=== PATIENT | female | born 1980 | race Caucasian/White ===

== ENCOUNTER 2019-02-02 06:05 | Inpatient (IN) | payer OTHER ==
[~2019-02-02] VITALS: Ht 175.3 cm; Wt 136.1 kg
[2019-02-02 06:11] VITALS: BP 121/49
[2019-02-02] MEDS ORDERED: LISINOPRIL40 MG PO (06:17)
[2019-02-02] MEDS ORDERED: LEXAPRO20 MG PO (06:17)
[2019-02-02] MEDS ORDERED: WELLBUTRIN XL150 MG PO (06:17)
[2019-02-02] MEDS ORDERED: SINGULAIR 10 MG10 M1 PO (06:18)
[2019-02-02] MEDS ORDERED: ZYRTEC10 M5 PO (06:18)
[2019-02-02] MEDS ORDERED: EPIPEN0.3 MG/0.1 SUBQ (06:20)
[2019-02-02] MEDS ORDERED: BREO ELLIPTA 11 EACH INH (06:22)
[2019-02-02 06:35] LABS: ABSOLUTE BASOPHILS 0.1 thou/uL (0.0-0.2); ABSOLUTE EOSINOPHILS 0.1 thou/uL (0.0-0.7); ABSOLUTE LYMPHOCYTES 1.9 thou/uL (0.8-5.3); ABSOLUTE MONOCYTES 0.9 thou/uL (0.0-1.2); ABSOLUTE NEUTROPHILS 10.7 thou/uL (1.6-8.1); BASOPHILS 0.6 %; HEMOGLOBIN 12.5 gm/dL (12.0-15.0); LYMPHOCYTES 14.1 %; MCH 30.6 pg (26.0-34.0); MCHC 33.8 g/dL (28.0-37.0); MCV 90.5 fL (80.0-100.0); MONOCYTES 6.3 %; MPV 8.1 fl. (7.2-11.1); NUCLEATED RBCS 0 /100WBC; PLATELET COUNT* 379 thou/uL (150-400); RBC 4.08 mil/uL (4.20-5.00); RDW-CV 13.1 % (10.5-14.5); WBC 13.7 thou/uL (4.0-11.0)
[2019-02-02 06:44] LABS: ALBUMIN 3.6 g/dL (3.4-5.0); TOTAL BILIRUBIN 0.4 mg/dL (<0.1-1.0); TOTAL PROTEIN 7.5 g/dL (6.4-8.2)
[2019-02-02 08:16] LABS: URINE BILIRUBIN NEGATIVE (Negative); URINE BLOOD 3+ (Negative); URINE CLARITY CLEAR; URINE COLOR YELLOW; URINE GLUCOSE-RANDOM NEGATIVE (Negative); URINE KETONES NEGATIVE (Negative); URINE LEUKOCYTES-REFLEX NEGATIVE (Negative); URINE NITRITE-REFLEX NEGATIVE (Negative); URINE PROTEIN NEGATIVE (Negative); URINE SPECIFIC GRAVITY <= 1.005 (1.005-1.030); URINE UROBILINOGEN 0.2 E.U./dl (0.2-1.0)
[2019-02-02 08:28] LABS: BACTERIA-REFLEX 1-9 Few /HPF (None Seen); SQUAMOUS 4-10 Moderate /LPF (0-3); URINE RBC 3-10 Few /HPF (0-2); URINE WBC-REFLEX 0-5 Rare /HPF (0-5)
[2019-02-02 08:29] LABS: CASTS None Seen /LPF (None Seen); CRYSTALS None Seen /LPF (None Seen); MUCUS 4-6 Moderate strn/LPF (None Seen)
[2019-02-02 15:14] VITALS: BP 145/69
[2019-02-02 16:21] VITALS: BP 165/72
--- NOTE | 2019-02-02 18:18 | NUR ---
PATIENT ARRIVED TO UNIT AT APPROX 1520. ALERT AND ROEITNED X4. ASSESSMENT COMPLETED AND CHARTED. VSS ON ROOM AIR. NO COMPLAINTS OF NAUSEA OR SOA UPON ADMISSION ASSESSMENT. PAIN HAS BEEN MANAGED WITH ORAL MEDICATION. FLUIDS AND ANTIBIOTICS INFUSED ORDERED. PATIENT EXPERIENCED SOME NAUSEA AFTER DINNER, ZOFRAN GIVEN WITH SOME RESOLUTION. DR OSBORNE SAW PATIENT AND GAVE VERBAL ORDERS FOR NPO AT MIDNIGHT, WILL REASSESS PATIENT IN THE MORNING AND POSSIBLE I&D WITH WASHOUT TOMORROW AFTERNOON. HOURLY ROUNDS COMPLETED, CALL LIGHT WITHIN REACH, NURSING WILL CONTINUE TO MONITOR.
[2019-02-02 20:00] VITALS: BP 126/88
[2019-02-03] VITALS: BP 118/60
[2019-02-03 04:00] VITALS: BP 114/54
[2019-02-03 04:27] LABS: ABSOLUTE BASOPHILS 0.1 thou/uL (0.0-0.2); ABSOLUTE EOSINOPHILS 0.1 thou/uL (0.0-0.7); ABSOLUTE LYMPHOCYTES 2.5 thou/uL (0.8-5.3); ABSOLUTE MONOCYTES 0.9 thou/uL (0.0-1.2); ABSOLUTE NEUTROPHILS 7.7 thou/uL (1.6-8.1); BASOPHILS 0.6 %; EOSINOPHILS 1.3 %; HEMATOCRIT 32.8 % (37.0-47.0); HEMOGLOBIN 11.2 gm/dL (12.0-15.0); LYMPHOCYTES 22.1 %; MCH 31.3 pg (26.0-34.0); MCHC 34.1 g/dL (28.0-37.0); MCV 91.7 fL (80.0-100.0); MONOCYTES 7.8 %; MPV 8.1 fl. (7.2-11.1); NUCLEATED RBCS 0 /100WBC; PLATELET COUNT* 315 thou/uL (150-400); POLYS 68.2 %; RBC 3.58 mil/uL (4.20-5.00); WBC 11.3 thou/uL (4.0-11.0)
[2019-02-03 04:41] LABS: CALCIUM 8.5 mg/dL (8.5-10.1); CREATININE 0.9 mg/dL (0.6-1.3); POTASSIUM 3.8 mmol/L (3.5-5.1)
--- NOTE | 2019-02-03 04:48 | NUR ---
ASSUMED PT CARE AT 1930. NURSING ASSESSMENT COMPLETED AT START OF SHIFT. PT VOICED NO CONCERNS.PT C/O NAUSEA THIS SHIFT, DR. CANSECO NOTIFIED AND NEW ORDERS RECEIVED. PT RESTED WELL THIS SHIFT. HOURLY ROUNDING COMPLETED. CALL LIGHT WITHIN REACH. PT NPO AFTER MIDNIGHT FOR POSSIBLE I&D.
--- NOTE | 2019-02-03 08:02 | CON ---
[address] [address] CONSULTATION Name: JACQUELYN MORRIS Room: [address] IN .R.#: [id number] Admission: 02/02/19 Attend Phys: Vin Michael, Discharge: Date of : 84 Report #: [id number] THIS REPORT FOR: //name// CC: Alia Michael DATE OF SERVICE: 02/02/2019 ATTENDING PHYSICIAN: Alia Campbell MD REASON FOR CONSULTATION: Cat bite cellulitis, left hand. HISTORY OF PRESENT ILLNESS: The patient is a 39-year-old white woman, bitten by her own cat on the left hand yesterday, advised to use local icing, failed to improve, prescription for Augmentin called, she took one dose, she failed to improve and is admitted to the hospital. In the Emergency Room, she received Unasyn IV, which is the drug of choice against Pasteurella multocida, cat bite induced cellulitis. At present, obviously having pain on the left hand. Denies having had fevers. She was a little chilly before. PAST MEDICAL HISTORY: Bronchial asthma. Obesity. Some anxiety. Food allergies, for which she develops anaphylactic reactions and carries EpiPen. DRUG ALLERGIES: SULFA DRUGS AND NEOSPORIN. MEDICATIONS: She is on treatment at home with Augmentin, which she has taken single dose. She is also on Wellbutrin and Breo for asthma as well as medication for obesity and bronchial asthma. SOCIAL HISTORY: [employer]. Single. Owns a cat that had bitten her. FAMILY HISTORY: See H and P. REVIEW OF SYSTEMS: Noncontributory. PHYSICAL EXAMINATION: GENERAL: This is a well-developed, overweight woman, not toxic looking. VITAL SIGNS: Temperature 97.2, pulse 120-94 a minute, respirations 18, BP 121/49, weight 300 pounds, height 5 feet 9 inches. HEENMT: Normal. NECK: Supple, no thyromegaly. LUNGS: Clear to auscultation. HEART: S1, S2. No gallop or murmur. ABDOMEN: Obese, soft, no masses or megaly. PELVIC AND RECTAL: [place] [address] CONSULTATION Name: JACQUELYN MORRIS Room: [address]#: [id number] Admission: 02/02/19 Attend Phys: Vin Michael, Discharge: Date of : 84 Report #: [id number] EXTREMITIES: Puncture wounds dorsal aspect of left hand with cellulitic changes, point tenderness. No fluctuance. Significant edema dorsal aspect of left hand. No lymphangitic spread left forearm. No axillary adenopathy, left arm. NEUROLOGIC: Grossly within normal limits. LABORATORY DATA: Revealed the following: Sodium 140, potassium 4, BUN 11, creatinine 1, glucose 129. Liver enzymes normal. WBC 13.7, hemoglobin 12.5, platelets 379,000. White blood cell count differential revealed 78% segmented neutrophils. Urinalysis revealed 4-10 squamous epithelial cells, some microscopic hematuria, bacteriuria, and some mucus, which I suspect are vaginal contamination. Blood cultures were obtained and obviously they are pending at the time of this dictation. ASSESSMENT: 1. 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 2. Bronchial asthma. 3. Anxiety. 4. Obesity. SUGGESTIONS: Recommend elevation of the left hand, local cold packs. Continue Unasyn 3 grams IV every 6 hours. Suspect the patient could be discharged in 24-48 hours on oral Augmentin 875 b.i.d. if she is improved and asymptomatic. Dr. Campbell, thank you for requesting my suggestions. <ELECTRONICALLY SIGNED> By: Marino Nunes MD 02/03/19 0802 [id number] [id number] Nunes MD /nt
[2019-02-03 08:10] VITALS: BP 126/54
--- NOTE | 2019-02-03 12:06 | CON ---
[address] [address] CONSULTATION Name: JACQUELYN MORRIS Room: [address] IN .R.#: [id number] Admission: 02/02/19 Attend Phys: Vin Michale, Discharge: Date of : 84 Report #: [id number] THIS REPORT FOR: //name// CC: Alia Michael CHIEF COMPLAINT: Left hand swelling. HISTORY OF PRESENT ILLNESS: The patient is a 39-year-old female who presented to the Emergency Department with left hand swelling after a supposed cat bite on 02/01/2019 in the a.m. It was her own cat. The patient states cat is up to date on vaccines and she is up to date on her tetanus. The patient states she went to her primary care doctor yesterday and was given Augmentin with the first dose being last night around 2200. The patient reports the onset of redness and swelling of the left hand around 2300. States her hand looks worse today and presented to the Emergency Room this morning. The patient denies any fever, nausea or vomiting. She has not had any numbness or tingling. Yesterday, she did take some tramadol at 0400 in the morning with no other complaints. The patient states the pain when it is there, lasts for several minutes, is worse with movement; however, the patient does have full range of motion of the fingers and full sensation intact. The patient states it can get to a 6/10 and higher from time to time. She has not used ice and has not had any compressive wrap. The patient is admitted for consultation evaluation. PAST MEDICAL HISTORY: Hypertension, seasonal allergies and depression. CURRENT MEDICATIONS: Lisinopril, escitalopram, bupropion, cetirizine, montelukast sodium, epinephrine and fluticasone/vilanterol. ALLERGIES: ADHESIVES, POLYMYXIN B, SEASONAL ALLERGIES and SULFA. FAMILY HISTORY: Reviewed, not pertinent and noncontributory. SOCIAL HISTORY: The patient denies any tobacco, alcohol or illicit drug use. REVIEW OF SYSTEMS: CONSTITUTIONAL: The patient denies fevers or chills. MUSCULOSKELETAL: The patient does have left hand swelling. NEUROLOGIC: The patient denies numbness or tingling. Does have intact sensation, does have 2 punctate punctures on the left hand with small areas of granulation tissue. Ten-point review of systems is negative other than pertinent positives and the review of systems in HPI. PHYSICAL EXAMINATION: GENERAL: The patient is alert and oriented, well-developed, well-nourished. EYES: Conjunctivae and eyelids are normal, PERRLA. No scleral icterus. HEENT: Ears normal, nose normal. Pharynx normal[place] [address] CONSULTATION Name: JACQUELYN MORRIS Room: [address] IN [facility]#: [id number] Admission: 02/02/19 Attend Phys: Vin Michael, Discharge: Date of : 84 Report #: [id number] HEAD: Atraumatic. NECK: Supple, no masses, nontender. LUNGS: No respiratory distress. Breath sounds normal. No wheezing, no rhonchi. CARDIOVASCULAR: Without murmur. No gallops or rubs. She is slightly tachycardic upon evaluation. ABDOMEN: Soft, nontender, nondistended, positive bowel sounds. EXTREMITIES: The patient does move all extremities. Does have erythema and swelling of the left hand at the web space between the thumb and index finger, as well as over the dorsum of the index and long finger. NEUROLOGIC: The patient is alert and oriented x 3. Cranial nerves intact. SKIN: Other than the left hand, normal color, no rash, warm and dry. LABORATORY DATA: Abnormal labs are glucose 129, white blood cells 13.7, absolute neutrophils 10.7. Lactic acid 2.1. Remainder of chemistries and hematology within normal limits. MICROBIOLOGY: Two pending blood cultures. X-ray of the left hand reveals dorsal soft tissue swelling without subcutaneous emphysema or radiopaque foreign body. There is no destructive bony change seen. ASSESSMENT: Cat bite, left hand with cellulitis. PLAN: The patient has received Augmentin the prior day orally after she saw her primary care physician, took 1 pill last night. She does have some swelling and erythema, did get Unasyn in the ER, 3 grams and is now getting it every 6 hours. The patient was discussed that due to cat bites, a lot of times bacteria can get into the soft tissues and deep spaces and that it may be necessary for irrigation and debridement of these deep spaces. The patient and family are discussed possibility of compartment syndrome as well as for constant evaluation of any numbness or tingling within the hand and to notify staff if she notices any worsening of this. They are discussed at this time due to the swelling, she would be a candidate for irrigation and debridement of these regions. The patient and family have stated they would like to hold off and see if the antibiotics help and this is agreed upon as long as they can change it, notify staff of any increased swelling or numbness in the hand. The patient will be kept n.p.o. overnight for possible irrigation and debridement should she see no improvement with the antibiotics and after evaluation by Infectious Disease. The patient and family are agreeable and are understanding of this treatment outcome. Continue antibiotics and we will monitor for any worsening signs. I appreciate this consultation. <ELECTRONICALLY SIGNED> By: Antonino Noble II, DO 02/03/19 1206 [id number] Noble II, DO /nt
--- NOTE | 2019-02-03 18:31 | NUR ---
ASSUMED CARE OF PATIENT AT APPROX 0730. ALERT AND ORIENTED X4. ASSESSMENT COMPLETED AND CHARTED. VSS ON ROOM AIR. PATIENT NPO THIS AM FOR INCISION AND DRAINAGE PROCEDURE ON LEFT HAND. PATIENT TO PACU AT 1100 AND RETUNRED AT 1400. PATIENT REMAINED ALERT AND OREINTED AND VITALS REMAINED STABLE ON ROOM AIR. PAIN MANAGED WITH ICE PACKS AND ORAL MEDICATION. PATIENT UP AD SHAHBAZ IN THE ROOM. HOURLY ROUNDS COMPLETED. CALL LIGHT WITHIN REACH AND PATIENT USES APPROPRIATELY. NURSING WILL CONTINUE TO MONITOR.
[2019-02-03 20:15] VITALS: BP 128/77
[2019-02-04 04:02] LABS: HEMOGLOBIN 10.6 gm/dL (12.0-15.0); MCH 31.4 pg (26.0-34.0); MCHC 34.1 g/dL (28.0-37.0); MCV 92.2 fL (80.0-100.0); MPV 8.1 fl. (7.2-11.1); RBC 3.36 mil/uL (4.20-5.00); RDW-CV 13.1 % (10.5-14.5); WBC 10.1 thou/uL (4.0-11.0)
[2019-02-04 04:29] LABS: CALCIUM 8.1 mg/dL (8.5-10.1); CREATININE 0.9 mg/dL (0.6-1.3); POTASSIUM 3.9 mmol/L (3.5-5.1)
--- NOTE | 2019-02-04 05:08 | NUR ---
PT REMAINED ALERT AND ORIENTED. PT C/O PAIN, MEDS GIVEN ORDERED. PT SLEPT MOST OF NIGHT. PT WORRIED ABOUT PAIN IN RT SIDE OF NECK, PALPATED NECK AND SAW SOME SWELLING. APPLIED HEATING CLOTH TO NECK. FALL RISK PRECAUTIONS IN PLACE. HOURLY ROUNDING COMPLETED. WILL CONTINUE TO MONITOR.
[2019-02-04 08:00] VITALS: BP 124/58
--- NOTE | 2019-02-04 12:14 | NUR ---
PT.IN BED. STATED HER HAND WAS STILL VERY PAINFUL. SHE SAID SHE LIVES WITH HER PARENTS. 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 NO USE OF DME. DISCUSSED DISCHARGE PLANNING. SHE IS AWARE CULTURES ARE PENDING. TOLD HER BEST CASE SCENERIO WOULD BE FOR HER TO BE ABLE TO GO HOME ON ORAL ANTIBIOTICS. THIS WILL BE UP TO THE DRS. DISCUSSED BRIEFLY IV ANTIBIOTICS AT HOME. SHE SAID HER MOM IS A RETIRED RN SO COULD ASSIST HER IF NEEDED. JOSE FAXED FACE SHEET AND MED LIST TO [facility] AND SPOKE WITH NIELS BIANCHI AT [phone]. SHE WILL CHECK IV DRUG BENEFITS WITH HER INSURANCE AND CALL JOSE BACK.
[2019-02-04 18:59] VITALS: BP 115/52
--- NOTE | 2019-02-04 19:09 | NUR ---
PT IS ALERT AND ORIENTED X 4. LEFT HAND PAIN MANAGED WITH PO OXY. ICE PACK GIVEN FOR USE FOR NECK PAIN. IV PATENT. DENIES ANY NAUSEA. CHANTELL WRAP ON LEFT HAND-C//D/I. PATIENT WILL USE CALL LIGHT FOR ASSISTANCE. LEFT HAND ELEVATED ON PILLOW. PT COMPLAINED OF HAND HAVING INCREASE REDNESS. AREA MARKED ON ARM TO CONTINUE TO MONITOR. HOURLY ROUNDS MAINTAINED.
--- NOTE | 2019-02-04 20:15 | OP ---
[address] [address] OPERATIVE REPORT Name: JACQUELYN MORRIS Room: [address] IN .R.#: [id number] Admission: 02/02/19 Attend Phys: Vin Michael, Discharge: Date of : 84 Report #: [id number] THIS REPORT FOR: //name// CC: Alia Adrianwill Michael DATE OF SERVICE: 02/03/2019 PREOPERATIVE DIAGNOSIS: Left hand cat bite with superficial and deep infection. POSTOPERATIVE DIAGNOSIS: Left hand cat bite with superficial and deep infection. PROCEDURE PERFORMED: Left hand irrigation and debridement of subcutaneous tissues on the dorsum of the hand, irrigation and debridement of the deep tissues on the dorsum of the hand, irrigation and debridement of the volar superficial tissues, irrigation and debridement of the deep volar tissues and then irrigation and debridement of the index finger tendon sheath. SURGEON: Antonino Noble II, DO BINDER TECHNICIAN: MARYLOU Gonzales ANESTHESIA: LMA. ESTIMATED BLOOD LOSS: Minimal. ANTIBIOTICS: Given preoperatively. DRAINS: Rubber band drain to the dorsum of the hand. COMPLICATIONS: None. CONDITION OF THE PATIENT: Stable to recovery room. BRIEF HISTORY: The patient was seen the day prior with cat bite cellulitis, did have some erythema to the hand; however, the patient was discussed irrigation of the bite sites and would like to wait until she has received antibiotics first to see if it improves, this was determined to not improve and the patient was discussed washing out of these pus-filled pockets. She elected to proceed. DESCRIPTION OF PROCEDURE: The patient was taken to the operative suite and placed supine on the operative table and given appropriate anesthesia. The patient had a sterile preparation over the hand and was sterilely prepped and draped. Surgery began by incision over the dorsum of the hand near the cat bite. There was only a minimal amount of pus noted near the [place], [place] [address] OPERATIVE REPORT Name: ARTUROJACQUELYN ZHENG Room: [address] IN [facility].#: [id number] Admission: 02/02/19 Attend Phys: Vin Michael, Discharge: Date of : 84 Report #: [id number] did not tract down to the deeper portions of the tissues. This was cultured in this region. Utilizing curette, this tract was curetted out of any necrotic tissue through the superficial layers. Tooth bite did go down towards the deeper layers and these were explored to the dorsum of the hand utilizing blunt dissection. There was found to be no further pockets of abscess or pus. This area was then copiously irrigated utilizing Asepto and curette down to bleeding tissue. A drain was then made of a rubber band and placed into the wound. One 3-0 nylon was loosely utilized to approximate the skin edges to keep the drain in place leaving the wound open for drainage. The volar aspect of the hand was then evaluated and incision was made over the other cat bite in this region, the skin and subcutaneous tissues. Curette was utilized to remove only a small amount of pus without evidence of significant abscess formation. Deep tissues were also explored showing no evidence of pus or infection on the volar aspect of the hand. This was between the first and second webspace. A separate incision was also made over the radial aspect of the index finger and this was carried through the subcutaneous tissues. The tensor tendon sheath was then evaluated and shown to have no evidence of pus pockets and no evidence of deep abscess. Irrigation was performed of all these wounds. A 3-0 nylon utilized to loosely approximate the edges, however to leave it open for continued drainage. The patient was discussed preoperatively that this will heal by secondary intent as the infection leaves through these wounds. Final irrigation was performed. Sterile dressing was applied. The patient was transported to the recovery room in stable condition. Counts correct throughout the procedure. <ELECTRONICALLY SIGNED> By: Antonino Noble II, DO 02/04/192014 0727 [id number] Noble II, DO /nt
[2019-02-04 20:20] VITALS: BP 143/75
[2019-02-05 04:22] LABS: HEMATOCRIT 29.7 % (37.0-47.0); HEMOGLOBIN 10.2 gm/dL (12.0-15.0); MCH 31.4 pg (26.0-34.0); MCHC 34.3 g/dL (28.0-37.0); MCV 91.4 fL (80.0-100.0); MPV 8.1 fl. (7.2-11.1); RBC 3.25 mil/uL (4.20-5.00)
--- NOTE | 2019-02-05 08:04 | NUR ---
Alert and oriented x 4. Up independently in room. Vitals are stable. She had some black marker drawn on her L arm b/c it was red yesterday, now there isn't any redness. This am Dr Nunes was in and he took down her dressing to her left hand. He just wrote in his note to continue on current antibiotics. Xeroform gauze was on patient's hand and it was not removed. Small, thin, rubberband drain was in place. Non stick dressing applied and kerlex wrapped around hand and then acewrap applied. Patient had pain meds x 2 this shift. She has slept well.
[2019-02-05 08:05] VITALS: BP 117/43
--- NOTE | 2019-02-05 14:45 | NUR ---
0700 ASSUMED CARE OF PT AT 0700. PT ABLE TO MAKE NEEDS KNOWN, EXPRESSES CONCERN REGARDING INFECTIOUS DISEASE DOCTOR REMOVING DRESSING THIS MORNING. WIRE SPOOLER NURSE REWRAPPED HER HAND. THIS NURSE CALLED AND INFORMED HIM THE ID HAD REMOVED HIS DRSG AND THAT IT APPLEARS THAT PINROSE DRAIN IS NOT IN PLACE. INSTRUCTED THIS NURSE TO REMOVE THE DRAIN COMPLETELY AND MONITOR. PT CONT ON IV ABT. NO C/O AT THIS TIME, CALL LIGHT IN REACH.
[2019-02-05 18:56] VITALS: BP 120/60
--- NOTE | 2019-02-05 19:55 | NUR ---
THIS NURSE RECEIVED SRINIVAS DRAIN TO LEFT HAND. INCISION HAS NO REDNESS OR DRAINAGE NOTED. DRESSING APPLIED WITH VASELINE GAUZE, WRAPPED WITH KERLIX AND CHANTELL WRAP.
[2019-02-05 21:20] VITALS: BP 137/72
--- NOTE | 2019-02-06 05:52 | NUR ---
PATIENT HAS SLEPT WELL THROUGHOUT MOST OF THE NIGHT. VSS ON RA. NO C/O PAIN. NEW IV INSERTED IN RIGHT AC. IV ABT GIVEN WITHOUT ANY ADVERSE SIDE EFFECTS NOTED. DRESSING TO LEFT HAND-C/D/I. PATIENT INSTRUCTED TO USE CALL LIGHT WHEN NEEDING ASSISTANCE. HOURLY ROUNDS MADE. WILL CONTINUE WITH PLAN OF CARE AND NURSING TO MONITOR.
[2019-02-06 09:00] VITALS: BP 122/56
--- NOTE | 2019-02-06 17:35 | NUR ---
PT REMAINED ALERT AND ORIENTED. PT C.O PAIN, MEDS GIVEN ORDERED. IV ABX RUNNING, UNABLE TO RE TIME ABX FOR MISSED DOSE YESTERDAY. EXPLAINED THIS TO PT AND STATED THEY UNDERSTOOD. FALL RISK PRECAUTIONS IN PLACE. HOURLY ROUNDING COMPLETED. WILL CONTINUE TO MONITOR.
[2019-02-06 18:21] VITALS: BP 135/45
[2019-02-06 21:30] VITALS: BP 143/63
[2019-02-07 07:40] VITALS: BP 123/67
--- NOTE | 2019-02-07 08:16 | NUR ---
PATIENT HAS SLEPT WELL THROUGHOUT THE NIGHT. VSS ON RA. PAIN WELL CONTROLLED. DRESSING TO LEFT HAND IS C/D/I. IV IN RIGHT AC-SL. IV ABT GIVEN WITHOUT ANY ADVERSE SIDE EFFECTS NOTED. PATIENT INSTRUCTED TO USE CALL LIGHT WHEN NEEDING ASSISTANCE. HOURLY ROUNDS MADE. WILL CONTINUE WITH PLAN OF CARE AND NURSING TO MONITOR.
[2019-02-07] MEDS ORDERED: PERCOCET PO (10:04)
[2019-02-07] MEDS ORDERED: AUGMENTIN 875-1 EACH PO (10:05)
[2019-02-07 10:06] VITALS: BP 123/67
[2019-02-07 10:26] VITALS: BP 123/67
[2019-02-07 10:43] VITALS: BP 123/67
[2019-02-07 12:00] VITALS: BP 123/67
--- NOTE | 2019-02-07 12:00 | NUR ---
PT BELONGINGS GATHERED. PRESCRITPIONS GIVEN AND ACRE NOTES. WENT OVER DISHCARGE INFORMATION. IV REMOVED. FALL RISK PRECAUTIONS IN PLACE. HOURLY ROUNDING COMPLETED. PT LEFT VIA WHEELCHAIR WITH NURSING STAFF TO HOME CARE.
== END 2019-02-07 12:01 | disposition home or self-care (01) | DRG 854 ==
LOC: M.ERS 06:05 → M.TBA-ER 07:22 → M.ORTHSURG 07:22 → M.TBA-ER 07:40 → M.ORTHSURG 15:20
PROVIDERS: Emergency Medicine; Internal Medicine; Orthopaedic Surgery; ADMIT Family Medicine
PROC: 0JBK0ZZ Excision of Left Hand Subcutaneous Tissue and Fascia, Open Approach (ICD-10-PCS; principal; 2019-02-04)
DX: A41.9 Sepsis, unspecified organism (principal); L03.114 Cellulitis of left upper limb; Z68.41 Body mass index [BMI] 40.0-44.9, adult; E66.9 Obesity, unspecified; F41.9 Anxiety disorder, unspecified; J45.909 Unspecified asthma, uncomplicated; F32.9 Major depressive disorder, single episode, unspecified; I10 Essential (primary) hypertension; S61.452A Open bite of left hand, initial encounter; Z88.2 Allergy status to sulfonamides; Z88.1 Allergy status to other antibiotic agents; Z88.8 Allergy status to other drugs, medicaments and biological substances; W55.01XA Bitten by cat, initial encounter; Y93.89 Activity, other specified; Y92.89 Other specified places as the place of occurrence of the external cause; Y99.8 Other external cause status